=== PATIENT | female | born 1980 | race American Indian/Alaskan Native ===

== ENCOUNTER 2016-07-06 14:33 | Outpatient (CLI) | payer OTHER ==
--- NOTE | 2016-07-06 16:41 | Vascular Lab Report ---
Right Lower Extremity Venous Duplex Study: Reason for Exam: Right leg pain. Comments on the Right: All veins visualized are freely compressible without evidence of internal echogenicity. Flow is spontaneous and phasic throughout. No evidence of acute or chronic thrombus is seen in any of the vessels visualized. Comments on the Left: A limited duplex study was done of the proximal veins of the left lower extremity. All veins visualized are freely compressible without evidence of internal echogenicity. Flow is spontaneous and phasic throughout. No evidence of acute or chronic thrombus is seen in any of the vessels visualized. Impression: No evidence of acute or chronic deep venous thrombosis in the right lower extremity.
== END 2016-07-06 14:34 | disposition home or self-care (01) ==
LOC: VAS 14:33
PROVIDERS: ATTEND General Practice
DX: I80.3 Phlebitis and thrombophlebitis of lower extremities, unspecified (principal)

== ENCOUNTER 2017-01-13 11:24 | Emergency (ER) | payer OTHER ==
[2017-01-13 11:48] VITALS: BP 160/90
--- NOTE | 2017-01-13 12:50 | Emergency Department Report ---
ED Female HPI - General Chief complaint: Urogenital-Female Stated complaint: PELVIC PAIN Time Seen by Provider: 01/13/17 12:33 Source: patient Mode of arrival: Ambulatory Limitations: No Limitations - History of Present Illness -: days(s) Associated Symptoms: denies other symptoms. denies: vaginal discharge, vaginal bleeding, abdominal pain, nausea/vomiting, fever/chills, headaches, loss of appetite, dysuria, hematuria, rash, seizure, shortness of breath, syncope, weakness - Related Data Home Medications Medication Instructions Recorded Confirmed Last Taken Hydrochlorothiazide 25 mg PO DAILY 02/26/15 05/06/15 Unknown Previous Rx's Medication Instructions Recorded Last Taken Type Acetaminophen/Codeine [Tylenol #3] 1 tab PO Q6H PRN #15 tab 05/06/15 Unknown Rx methOCARBAMOL [Robaxin TAB] 500 mg PO BID #20 tab 05/06/15 Unknown Rx Allergies Allergy/AdvReac Type Severity Reaction Status Date / Time Iodine and Iodide Containing Allergy Hives Verified 05/06/15 10:29 Produc Penicillins Allergy Unknown Verified 05/06/15 10:29 shellfish derived Allergy Hives Verified 05/06/15 10:29 figs Allergy Hives Uncoded 05/06/15 10:29 strawberries Allergy Hives Uncoded 05/06/15 10:29 ED Review of Systems ROS: Stated complaint: PELVIC PAIN Other details as noted in HPI Comment: Unobtainable due to pts medical conditions Constitutional: no symptoms reported, see HPI. denies: chills, fever Eyes: as per HPI. denies: eye pain ENT: as per HPI. denies: ear pain, throat pain Respiratory: no symptoms reported, see HPI. denies: cough, orthopnea Cardiovascular: as per HPI. denies: chest pain, palpitations, dyspnea on exertion, orthopnea Endocrine: no symptoms reported, see HPI. denies: excessive sweating, flushing , intolerance to cold, intolerance to heat Gastrointestinal: as per HPI, other (LMP 10 -4). denies: abdominal pain, nausea , vomiting, diarrhea, constipation, hematemesis, melena, hematochezia Genitourinary: as per HPI. denies: urgency, dysuria, frequency, hematuria, discharge, abnormal menses, dyspareunia Musculoskeletal: as per HPI. denies: back pain, joint swelling Skin: as per HPI. denies: rash, lesions Neurological: as per HPI. denies: headache, weakness Psychiatric: as per HPI. denies: anxiety, depression Hematological/Lymphatic: as per HPI. denies: easy bleeding ED Past Medical Hx - Past Medical History Hx Hypertension: Yes (OFF MEDS.) Hx Asthma: Yes - Surgical History Additional Surgical History: , TONSIL SURGERY - Social History Smoking Status: Never Smoker Substance Use Type: None - Medications Home Medications: Home Medications Medication Instructions Recorded Confirmed Last Taken Type Hydrochlorothiazide 25 mg PO DAILY 02/26/15 05/06/15 Unknown History Acetaminophen/Codeine [Tylenol #3] 1 tab PO Q6H PRN #15 tab 05/06/15 Unknown Rx methOCARBAMOL [Robaxin TAB] 500 mg PO BID #20 tab 05/06/15 Unknown Rx ED Physical Exam - General Limitations: No Limitations General appearance: alert - Head Head exam: Present: atraumatic - Eye Eye exam: Present: normal appearance, PERRL - ENT ENT exam: Present: mucous membranes moist - Neck Neck exam: Present: normal inspection - Respiratory Respiratory exam: Present: normal lung sounds bilaterally - Cardiovascular Cardiovascular Exam: Present: regular rate - GI/Abdominal GI/Abdominal exam: Present: soft, normal bowel sounds. Absent: distended, tenderness, guarding, rebound, rigid, diminished bowel sounds, hyperactive bowel sounds, hypoactive bowel sounds, organomegaly, mass, bruit, pulsatile mass , hernia - Rectal Rectal exam: Present: deferred - Extremities Exam Extremities exam: Present: normal inspection, full ROM - Back Exam Back exam: Present: normal inspection, full ROM. Absent: tenderness, CVA tenderness (R), CVA tenderness (L) - Neurological Exam Neurological exam: Present: alert, oriented X3 - Psychiatric Psychiatric exam: Present: normal affect, normal mood - Skin Skin exam: Present: warm, dry, intact ED Course Vital Signs 01/13/17 11:44 Temperature 98 F Pulse Rate 84 Respiratory 20 Rate Blood Pressure 160/90 O2 Sat by Pulse 100 Oximetry - Reevaluation(s) Reevaluation #1: 01/13/17 14:47 TO ER TODAY P GETTING CONDOM STUCK IN VAGINA 2 DAYS AGO SHE GOT THE CONDOM OUT THE SAME DAY P CALLING 911 TO ASSIST THIS IS NEW SEXUAL PARTNER AND SHE STATES SHE HAS HAD PRESSURE LIKE W UTI IN THE PAST NO DYSURIA NO VAG BLEED NO VAG DC NO FEVER ABD SNT NAD UA NOTED PT REASSURED DC HOME W OB FOLLOW UP Critical care attestation.: If time is entered above; I have spent that time in minutes in the direct care of this critically ill patient, excluding procedure time. ED Disposition Clinical Impression: Pelvic pressure in female Disposition: DC-01 TO HOME OR SELFCARE Is pt being admited?: No Does the pt Need Aspirin: No Condition: Stable Instructions: Safe Sex (ED) Referrals: BRYANT JUAREZ MD [Referring] - 3-5 Days MARCEL VELASQUEZ CNM [Staff Physician] - 3-5 Days LEONARDO VASQUEZ MD [Referring] - 3-5 Days [facility] [Outside] - 3-5 Days [facility] [Outside] - 3-5 Days [facility] [Outside] - 3-5 Days [facility] [Outside] - 3-5 Days Time of Disposition: 14:44
[2017-01-13 14:04] LABS: Bilirubin,Urine NEG (Negative); Blood,Urine NEG (Negative); Ketones,Urine NEG (Negative); Leukocyte Esterase,Urine NEG (Negative); Mucus,Urine FEW /HPF; Nitrite,Urine NEG (Negative); Protein,Urine <15 mg/dL mg/dL (Negative); Urobilinogen,Urine < 2.0 mg/dL (<2.0); WBC,Urine < 1.0 /HPF (0.0-6.0)
== END 2017-01-13 14:49 | disposition home or self-care (01) ==
LOC: ED 11:24
DX: R10.2 Pelvic and perineal pain (principal); I10 Essential (primary) hypertension; J45.909 Unspecified asthma, uncomplicated; Z88.0 Allergy status to penicillin; Z91.041 Radiographic dye allergy status
CPT/HCPCS: 81001; 81025; 99283

== ENCOUNTER 2020-10-04 07:58 | Emergency (ER) | payer OTHER ==
[2020-10-04 08:14] VITALS: BP 151/101
--- NOTE | 2020-10-04 09:07 | Emergency Department Report ---
Chief Complaint: Skin/Abscess/Foreign Body Stated Complaint: insect bite Time Seen by Provider: 10/04/20 08:40 - HPI History of Present Illness: 39-year-old morbid obese -[place] female presents to the emergency room stating she was bit by a bug on her left upper arm last night. She states she woke up this morning with it is red and feeling a little tight. Patient is taking nothing for it besides placing tea tree. She does have a history of hypertension states that she is on hydrochlorothiazide but did not take it this morning as she just came directly to the emergency room. Patient denies any chest pain shortness of breath lower leg swelling headache nausea vomiting no fever chills - Exam Vital Signs: Vital Signs 10/04/20 10/04/20 08:11 08:13 Temperature 97.8 F Pulse Rate 76 Respiratory 18 Rate Blood Pressure 151/131 Blood Pressure 151/101 [Right] O2 Sat by Pulse 100 Oximetry Physical Exam: Patient is alert and oriented x3 no acute distress nontoxic in appearance Chest is clear to auscultation no respiratory distress Cardiac regular rate Left upper arm mild erythematous full range of motion Ambulatory without difficulty MSE screening note: Focused history and physical exam performed. Due to findings the following was ordered: 39-year-old morbid obese -[place] female presents to the emergency room stating she was bit by a bug on her left upper arm last night. She states she woke up this morning with it is red and feeling a little tight. Patient is taking nothing for it besides placing tea tree. She does have a history of hypertension states that she is on hydrochlorothiazide but did not take it this morning as she just came directly to the emergency room. Patient denies any chest pain shortness of breath lower leg swelling headache nausea vomiting no fever chills Discussed with patient she can take [id number] Benadryl as well as hydrocortisone cream. Follow-up with her primary care provider for any further concerns ED Disposition for [facility] Disposition: DC-01 TO HOME OR SELFCARE Is pt being admited?: No Does the pt Need Aspirin: No Condition: Stable Instructions: Insect Bite, Adult, [id number] Additional Instructions: Recommend [id number] hydrocortisone cream as well as Benadryl 25 mg every 6-8 hours for localized redness and swelling. Follow-up with a primary care provider. If your symptoms persist or gets worse. Referrals: [facility] [Provider Group] - 3-5 Days Time of Disposition: 09:01
== END 2020-10-04 09:51 | disposition home or self-care (01) ==
LOC: ED 07:58
DX: S40.862A Insect bite (nonvenomous) of left upper arm, initial encounter (principal); W57.XXXA Bitten or stung by nonvenomous insect and other nonvenomous arthropods, initial encounter; Y93.89 Activity, other specified; Y92.89 Other specified places as the place of occurrence of the external cause; Y99.8 Other external cause status
CPT/HCPCS: 99281